=== PATIENT | male | born 1955 | race Caucasian/White ===

== ENCOUNTER 2021-09-21 19:30 | Emergency (ER) | payer SELFPAY ==
[2021-09-21] MEDS ORDERED: Ondansetron PF 4 MG/2 ML Vial ONE ×2 (19:45)
[2021-09-21 20:16] LABS: #Monocytes 0.7 10x3/uL (0.0-1.1); #Neutrophils 10.2 10x3/uL (1.5-8.4); %Basophils 0.1 % (0.0-2.0); %Lymphocytes 11.3 % (18.0-47.0); %Monocytes 5.4 % (0.0-10.0); %Neutrophils 82.8 % (40.0-75.0); Hemoglobin 11.7 g/dL (13.5-17.5); Mean Corpuscular HGB CONC 34.5 g/dL (32.0-36.0); Mean Corpuscular Hemoglobin 31.2 pg (27.0-33.0); Mean Corpuscular Volume 90.4 fl (81.2-95.1); Mean Platelet Volume 9.3 fl (7.4-10.4); Platelet Count 268 10x3/uL (150-450); Red Blood Cell (RBC) Count 3.75 10x6/uL (4.32-5.72); White Blood Cell (WBC) Count 12.3 10x3/uL (3.5-10.5)
[2021-09-21 20:35] LABS: ALT (SGPT) 25 U/L (8-55); AST (SGOT) 22 U/L (5-34); Albumin 4.2 g/dL (3.4-4.8); Alkaline Phosphatase 55 U/L (40-110); Anion Gap 19 mmol/L (10-20); BUN (Urea Nitrogen) 23 mg/dL (8.4-25.7); Bilirubin, Total 1.2 mg/dL (0.2-1.2); CK (CPK) 105 U/L (30-200); Calc. Creatinine Clearance 0 mL/min (70-130); Calcium 9.6 mg/dL (7.8-10.44); Carbon Dioxide 20 mmol/L (23-31); Chloride 108 mmol/L (98-107); Estimated GFR 27; Globulin 2.6 g/dL (2.4-3.5); Glucose 114 mg/dL (80-115); Potassium 4.6 mmol/L (3.5-5.1); Protein, Total 6.8 g/dL (5.8-8.1); Sodium 142 mmol/L (136-145)
== END 2021-09-21 21:52 | disposition home or self-care (01) ==
LOC: CSHERS 19:30
DX: T67.5XXA Heat exhaustion, unspecified, initial encounter (principal); E11.9 Type 2 diabetes mellitus without complications; E78.5 Hyperlipidemia, unspecified; I10 Essential (primary) hypertension; Z87.891 Personal history of nicotine dependence
CPT/HCPCS: 36415; 80053; 82550; 84484; 85025; 93005; 96361; 96374; J2405

== ENCOUNTER 2023-05-11 05:45 | Emergency (ER) | payer OTHER ==
[2023-05-11] MEDS ORDERED: Acetaminophen 500 MG TAB ONE ×2 (06:29→09:54)
[2023-05-11] MEDS ORDERED: Morphine 4 MG/ML VIAL ONE (06:29)
[2023-05-11] MEDS ORDERED: Ketorolac Tromethamine 30 MG (1 mL) VIAL ONE (06:29)
[2023-05-11] MEDS ORDERED: Ondansetron PF 4 MG/2 ML Vial ONE (06:29)
[2023-05-11] MEDS ORDERED: Calcium Carbonate 500 MG ChewTAB ONE (11:03)
== END 2023-05-11 15:43 ==
LOC: CSHERS 05:45
DX: S22.080A Wedge compression fracture of T11-T12 vertebra, initial encounter for closed fracture (principal); E11.9 Type 2 diabetes mellitus without complications; E78.5 Hyperlipidemia, unspecified; I10 Essential (primary) hypertension; K21.9 Gastro-esophageal reflux disease without esophagitis; Z87.891 Personal history of nicotine dependence; Z79.84 Long term (current) use of oral hypoglycemic drugs; Z79.82 Long term (current) use of aspirin; Z79.899 Other long term (current) drug therapy; W18.30XA Fall on same level, unspecified, initial encounter
CPT/HCPCS: 72131; 96374; 96375; J1885; J2270; J2405